=== PATIENT | female | born 1985 | race African-American/Black ===

== ENCOUNTER 2016-07-14 08:02 | Emergency (ER) | payer BC, OTHER ==
[2016-07-14 08:16] VITALS: BP 109/67
--- NOTE | 2016-07-14 08:31 | UC ---
Throat Pain/Nasal Brian HPI - HPI Summary HPI Summary: sinus pain/pressure with headache. On week 2 of URI, suddenly worsened a few days ago. Productive cough. No fever. No ST or earache. - History of Current Complaint Chief Complaint: UCRespiratory Stated Complaint: RESPIRATORY COMPLAINT Time Seen by Provider: 07/14/16 08:20 Hx Obtained From: Patient Hx Last Menstrual Period: 06/24/16 Onset/Duration: Gradual Onset, Lasting Days - 14 Severity: Moderate Cough: Productive Associated Signs & Symptoms: Positive: Hoarseness, Sinus Discomfort, Nasal Discharge. Negative: Dysphagia, Fever, Vomiting, Rash - Epiglottits Risk Factors Epiglottis Risk Factors: Negative - Allergies/Home Medications Allergies/Adverse Reactions: Allergies Allergy/AdvReac Type Severity Reaction Status Date / Time Oxycodone [From Percocet] Allergy Mild Rash Verified 07/14/16 08:09 Penicillins Allergy Mild Hives Verified 07/14/16 08:09 PMH/Surg Hx/FS Hx/Imm Hx Previously Healthy: Yes Endocrine History Of: Denies: Diabetes, Thyroid Disease Cardiovascular History Of: Denies: Cardiac Disorders, Hypertension Respiratory History Of: Denies: COPD, Asthma GI/ History Of: Denies: Ulcer - Surgical History Surgical History: Yes Surgery Procedure, Year, and Place: [place], 2012, [facility] D&C - Family History Known Family History: Negative: Hypertension, Diabetes - Social History Occupation: Employed Full-time Lives: Alone Alcohol Use: Rare Substance Use Type: None Smoking Status (MU): Heavy Every Day Tobacco Smoker Type: Cigarettes Amount Used/How Often: 1/2 PPD Length of Time of Smoking/Using Tobacco: 10 Years Have You Smoked in the Last Year: Yes Household Exposure Type: Cigarettes - Immunization History Most Recent Influenza Vaccination: Not this season Review of Systems Constitutional: Negative Skin: Negative Eyes: Negative ENT: Nasal Discharge Respiratory: Cough Cardiovascular: Negative Gastrointestinal: Negative Genitourinary: Negative Motor: Negative Neurovascular: Negative Musculoskeletal: Negative Neurological: Negative Psychological: Negative All Other Systems Reviewed And Are Negative: Yes Physical Exam Triage Information Reviewed: Yes Appearance: Well-Appearing, No Pain Distress, Well-Nourished Vital Signs: Initial Vital Signs Temp 99.3 F 07/14/16 08:10 Pulse 67 07/14/16 08:10 Resp 16 01/18/17 08:10 BP 109/67 07/14/16 08:10 Pulse Ox 100 07/14/16 08:10 Vital Signs Reviewed: Yes Eye Exam: Normal ENT: Positive: Pharynx normal, Nasal congestion, Nasal drainage, TMs normal, Muffled/hoarse voice. Negative: Tonsillar swelling, Tonsillar exudate, Trismus Neck exam: Normal Respiratory Exam: Normal Respiratory: Positive: Lungs clear, Normal breath sounds, No respiratory distress, No accessory muscle use Musculoskeletal Exam: Normal Neurological Exam: Normal Psychological Exam: Normal Skin Exam: Normal Throat Pain/Nasal Course/Dx - Differential Dx/Diagnosis Differential Diagnosis/HQI/PQRI: Pharyngitis, Sinusitis, URI Provider Diagnoses: sinusitis Discharge - Discharge Plan Condition: Stable Disposition: HOME Prescriptions: DOXYcycline CAP(*) [DOXYcycline 100MG CAP(*)] 100 mg PO BID #20 cap Tramadol HCl [Ultram] 1 - 2 tab PO Q6HR PRN #20 tab MDD 6 tab PRN Reason: Headache Patient Education Materials: Sinusitis (ED) Referrals: Mari Lynn MD [Primary Care Provider] -
== END 2016-07-14 08:40 | disposition home or self-care (01) ==
LOC: UCCORT 08:02
DX: J32.9 Chronic sinusitis, unspecified (principal); Z88.5 Allergy status to narcotic agent; Z88.0 Allergy status to penicillin; F17.210 Nicotine dependence, cigarettes, uncomplicated
CPT/HCPCS: 99212; G0463

== ENCOUNTER 2016-07-29 13:22 | Emergency (ER) | payer BC ==
[2016-07-29 13:38] VITALS: BP 125/78
--- NOTE | 2016-07-29 16:10 | UC ---
Throat Pain/Nasal Brian HPI - HPI Summary HPI Summary: over 2 weeks of sinus pain and congestion, b/l ear pain and cough for 1 week ultram is causing her dizziness and got no relief of sinus infection with doxy, in addition she began with loose stool yesterday - History of Current Complaint Chief Complaint: UCGeneralIllness Stated Complaint: COUGH/VOMITING Time Seen by Provider: 07/29/16 15:50 Hx Obtained From: Patient Hx Last Menstrual Period: 07/03/16 ?: No Onset/Duration: Gradual Onset, Lasting Weeks, Still Present Severity: Moderate Pain Intensity: 5 Pain Scale Used: 0-10 Numeric Cough: None Associated Signs & Symptoms: Positive: Sinus Discomfort, Nasal Discharge - Allergies/Home Medications Allergies/Adverse Reactions: Allergies Allergy/AdvReac Type Severity Reaction Status Date / Time Oxycodone [From Percocet] Allergy Mild Rash Verified 07/29/16 13:38 Penicillins Allergy Mild Hives Verified 07/29/16 13:38 PMH/Surg Hx/FS Hx/Imm Hx Previously Healthy: Yes Endocrine History Of: Denies: Diabetes, Thyroid Disease Cardiovascular History Of: Denies: Cardiac Disorders, Hypertension Respiratory History Of: Denies: COPD, Asthma GI/ History Of: Denies: Ulcer - Surgical History Surgical History: Yes Surgery Procedure, Year, and Place: [facility], [facility], [facility] D&C - Family History Known Family History: Negative: Hypertension, Diabetes Family History: denies family cardiovascular or diabetic issues - Social History Occupation: Employed Full-time Lives: With Family Alcohol Use: Rare Substance Use Type: None Smoking Status (MU): Heavy Every Day Tobacco Smoker Type: Cigarettes Amount Used/How Often: 1/2 PPD Length of Time of Smoking/Using Tobacco: 10 Years Have You Smoked in the Last Year: Yes Household Exposure Type: Cigarettes Cessation Counseling: Patient Advised to Stop - Immunization History Most Recent Influenza Vaccination: Not this season Review of Systems Constitutional: Negative Skin: Negative Eyes: Negative ENT: Sore Throat, Ear Ache, Nasal Discharge Respiratory: Cough Cardiovascular: Negative Gastrointestinal: Abdominal Pain - nausea, Diarrhea Genitourinary: Negative Motor: Negative Neurovascular: Negative Musculoskeletal: Negative Neurological: Negative Psychological: Negative All Other Systems Reviewed And Are Negative: Yes Physical Exam Triage Information Reviewed: Yes Appearance: Well-Appearing, No Pain Distress, Well-Nourished Vital Signs: Initial Vital Signs Temp 98.6 F 07/29/16 13:32 Pulse 72 07/29/16 13:32 Resp 16 07/29/16 13:32 BP 125/78 07/29/16 13:32 Pulse Ox 100 07/29/16 13:32 Vital Signs Reviewed: Yes Eye Exam: Normal Eyes: Positive: Conjunctiva Clear ENT Exam: Normal ENT: Positive: Normal ENT inspection, Hearing grossly normal, Pharynx normal, Nasal congestion, Nasal drainage. Negative: TMs normal, Tonsillar swelling, Tonsillar exudate, Trismus, Muffled/hoarse voice Neck exam: Normal Neck: Positive: Supple, Nontender, No Lymphadenopathy Respiratory Exam: Normal Respiratory: Positive: Chest non-tender, Lungs clear, Normal breath sounds, No respiratory distress, No accessory muscle use Cardiovascular Exam: Normal Cardiovascular: Positive: RRR, No Murmur, Pulses Normal, Brisk Capillary Refill Abdominal Exam: Normal Abdomen Description: Positive: Nontender, No Organomegaly, Soft Bowel Sounds: Positive: Present Musculoskeletal Exam: Normal Musculoskeletal: Positive: Strength Intact, ROM Intact, No Edema Neurological Exam: Normal Neurological: Positive: Alert Psychological Exam: Normal Skin Exam: Normal Throat Pain/Nasal Course/Dx - Course Assessment/Plan: zithromax, zofran, increase fluids, follow with pcp recheck prn - Differential Dx/Diagnosis Differential Diagnosis/HQI/PQRI: Otitis Media, Peritonsillar Abscess, Pharyngitis, Sinusitis, URI Provider Diagnoses: Sinuisitis, Gastroenterititis Discharge - Discharge Plan Condition: Stable Disposition: HOME Prescriptions: Azithromycin TAB* [Zithromax TAB (Z-LILIYA) 250 mg #6 tabs] 2 tab PO .TODAY, THEN 1 DAILY #1 liliya Ondansetron [Zofran Odt] 4 mg PO QID #10 tab Patient Education Materials: Decongestant/Expectorant (By mouth), Sinusitis (ED ), Acute Nausea and Vomiting (ED), How to Use Nasal [place] (ED) Forms: *Work Release Referrals: Mari Lynn MD [Primary Care Provider] - If Needed
== END 2016-07-29 16:23 | disposition home or self-care (01) ==
LOC: UCCORT 13:22
DX: J32.9 Chronic sinusitis, unspecified (principal); K52.9 Noninfective gastroenteritis and colitis, unspecified; Z88.5 Allergy status to narcotic agent; Z88.0 Allergy status to penicillin; F17.210 Nicotine dependence, cigarettes, uncomplicated; Z71.6 Tobacco abuse counseling
CPT/HCPCS: 99212; G0463

== ENCOUNTER 2017-02-25 11:49 | Emergency (ER) | payer SELFPAY ==
[2017-02-25 11:58] VITALS: BP 125/86
--- NOTE | 2017-02-25 12:08 | UC ---
Back Pain HPI - HPI Summary HPI Summary: 31 YEAR OLD FEMALE PRESENTS WITH SEVERE LEFT SIDED UPPER BACK PAIN. - History of Current Complaint Chief Complaint: UCBackPain Stated Complaint: BACK INJURY (WC) Time Seen by Provider: 02/25/17 12:07 Hx Obtained From: Patient Hx Last Menstrual Period: 02/15/17 Onset/Duration: Sudden Onset Timing: Constant Severity Initially: Moderate Severity Currently: Severe Pain Scale Used: 0-10 Numeric - 8 Back Pain: Is Discrete @ - LEFT UPPER SHOULDER Aggravating: Lifting Associated Signs And Symptoms: Positive: Negative - Allergies/Home Medications Allergies/Adverse Reactions: Allergies Allergy/AdvReac Type Severity Reaction Status Date / Time Oxycodone [From Percocet] Allergy Mild Rash Verified 02/25/17 11:58 Penicillins Allergy Mild Hives Verified 02/25/17 11:58 Home Medications: Home Medications FLUoxetine CAP* [PROzac CAP*] 10 mg PO DAILY 02/25/17 [History Confirmed ] Ibuprofen TAB* [Motrin TAB* 600 MG] 600 mg PO Q6H PRN 02/25/17 [History Confirmed 02/25/17] PMH/Surg Hx/FS Hx/Imm Hx Previously Healthy: Yes - Surgical History Surgical History: Yes Surgery Procedure, Year, and Place: [place], 2012, [facility] D&C - Family History Known Family History: Negative: Hypertension, Diabetes Family History: denies family cardiovascular or diabetic issues - Social History Alcohol Use: Rare Substance Use Type: None Smoking Status (MU): Heavy Every Day Tobacco Smoker Type: Cigarettes Amount Used/How Often: 1/2 PPD Length of Time of Smoking/Using Tobacco: 10 Years Have You Smoked in the Last Year: Yes Household Exposure Type: Cigarettes - Immunization History Most Recent Influenza Vaccination: Not this season Review of Systems Constitutional: Negative Skin: Negative Eyes: Negative ENT: Negative Respiratory: Negative Cardiovascular: Negative Gastrointestinal: Negative Genitourinary: Negative Motor: Negative Neurovascular: Negative Musculoskeletal: Other: - LEFT UPPER BACK PAIN Neurological: Negative Psychological: Negative All Other Systems Reviewed And Are Negative: Yes Physical Exam Triage Information Reviewed: Yes Appearance: Pain Distress Vital Signs: Initial Vital Signs Temp 36.9 C 02/25/17 11:54 Pulse 64 02/25/17 11:54 Resp 18 02/25/17 11:54 BP 125/86 02/25/17 11:54 Pulse Ox 100 02/25/17 11:54 Vital Signs Reviewed: Yes Eye Exam: Normal ENT Exam: Normal Dental Exam: Normal Neck exam: Normal Neck: Positive: 1 Respiratory: Positive: Other: - LEFT UPPER BACK PAIN Cardiovascular Exam: Normal Abdominal Exam: Normal Musculoskeletal Exam: Normal Neurological Exam: Normal Psychological Exam: Normal Skin Exam: Normal Back Pain Course/Dx - Differential Dx/Diagnosis Provider Diagnoses: LEFT UPPER BACK PAIN Discharge - Discharge Plan Condition: Stable Disposition: HOME Prescriptions: Methocarbamol TAB* [Robaxin 500 MG TAB*] 500 mg PO TID PRN #30 tab PRN Reason: Spasms - Back Methylprednisolone [Medrol Dosepak 4 MG*] 4 mg PO .SEE LILIYA INSTRUCTION #21 tab Patient Education Materials: Acute Low Back Pain (ED), Shoulder Pain (ED) Forms: *Work Release Referrals: Mari Lynn MD [Medical Doctor] -
--- NOTE | 2017-02-25 12:37 | RAD ---
INDICATION: Shortness of breath. COMPARISON: There are no prior studies available for comparison. TECHNIQUE: Dual-energy PA and lateral views of the chest were obtained. FINDINGS: The heart is within normal limits in size. Mediastinal and hilar contours appear within normal limits. The lungs are clear. No pleural effusion is present. IMPRESSION: NO EVIDENCE FOR ACUTE FINDING.
[2017-02-25] MEDS ORDERED: methylPREDNISolone 125 MG* 2 ML VIAL IM ONE (12:38)
[2017-02-25] MEDS ORDERED: Cyclobenzaprine TAB* 10 MG PO ONE (13:01)
== END 2017-02-25 13:17 | disposition home or self-care (01) ==
LOC: UCCORT 11:49
DX: M54.9 Dorsalgia, unspecified (principal); Z88.5 Allergy status to narcotic agent; Z88.0 Allergy status to penicillin; F17.210 Nicotine dependence, cigarettes, uncomplicated
CPT/HCPCS: 71020; 96372; 99211; A9270-GY; G0463; J2930

== ENCOUNTER 2017-07-20 13:11 | Emergency (ER) | payer BC, OTHER ==
[2017-07-20 13:55] VITALS: BP 130/80
--- NOTE | 2017-07-20 15:04 | ED ---
Throat Pain/Nasal Congestion - HPI Summary HPI Summary: 31 yr old with the complaint of bilateral maxillary sinus pressure and congestion with bilateral ear pressure. Onset of runny nose, sore throat and cough about a month ago. She cannot get over the feeling of the pressure and post nasal drip in her sinuses, and now she has bilateral ear pressure. she and her have both had similar symptoms. - History of Current Complaint Chief Complaint: UCEar Time Seen by Provider: 07/20/17 14:39 - Allergies/Home Medications Allergies/Adverse Reactions: Allergies Allergy/AdvReac Type Severity Reaction Status Date / Time Oxycodone [From Percocet] Allergy Mild Rash Verified 07/20/17 13:56 Penicillins Allergy Mild Hives Verified 07/20/17 13:56 PMH/Surg Hx/FS Hx/Imm Hx Endocrine/Hematology History: Denies: Hx Diabetes, Hx Thyroid Disease Cardiovascular History: Denies: Hx Hypertension Respiratory History: Denies: Hx Asthma, Hx Chronic Obstructive Pulmonary Disease (COPD) GI History: Denies: Hx Ulcer - Surgical History Surgery Procedure, Year, and Place: [place], [facility], [facility] D&C Infectious Disease History: No Infectious Disease History: Denies: Hx Hepatitis, Hx Human Immunodeficiency Virus (HIV), Traveled Outside the [place] in Last 30 Days - Family History Known Family History: Negative: Hypertension, Diabetes Family History: denies family cardiovascular or diabetic issues - Social History Alcohol Use: Rare Substance Use Type: Reports: None Smoking Status (MU): Heavy Every Day Tobacco Smoker Type: Cigarettes Amount Used/How Often: 1/2 PPD Length of Time of Smoking/Using Tobacco: 10 Years Have You Smoked in the Last Year: Yes Review of Systems Constitutional: Negative Positive: Ear Ache, Nasal Discharge Positive: Cough All Other Systems Reviewed And Are Negative: Yes Physical Exam Triage Information Reviewed: Yes Vital Signs On Initial Exam: Initial Vitals Temp Pulse Resp BP Pulse Ox 98.3 F 66 18 130/80 100 07/20/17 13:52 07/20/17 13:52 07/20/17 13:52 07/20/17 13:52 07/20/17 13:52 Vital Signs Reviewed: Yes Appearance: Positive: Well-Appearing, No Pain Distress Skin: Positive: Skin Color Reflects Adequate Perfusion Head/Face: Positive: Normal Head/Face Inspection Eyes: Positive: EOMI ENT: Positive: Pharynx normal, TMs normal, Sinus tenderness - bilateral Neck: Positive: Nontender Respiratory/Lung Sounds: Positive: Clear to Auscultation, Breath Sounds Present Cardiovascular: Positive: RRR. Negative: Murmur Abdomen Description: Positive: Nontender Musculoskeletal: Positive: Strength/ROM Intact Neurological: Positive: Sensory/Motor Intact, Alert, Oriented to Person Place, Time, CN Intact II-III Psychiatric: Positive: Normal - Suly Coma Scale Best Eye Response: 4 - Spontaneous Best Motor Response: 6 - Obeys Commands Best Verbal Response: 5 - Oriented Coma Scale Total: 15 Diagnostics - Vital Signs Vital Signs Temp Pulse Resp BP Pulse Ox 07/20/17 13:52 98.3 F 66 18 130/80 100 - Laboratory Lab Statement: Any lab studies that have been ordered have been reviewed, and results considered in the medical decision making process. EENT Course/Dx - Course Course Of Treatment: 31 yr old with sinusitis. Plan Dc to home on Biaxin - Diagnoses Provider Diagnoses: Sinusitis Discharge - Discharge Plan Condition: Good Disposition: HOME Prescriptions: Clarithromycin TAB* [Biaxin 500 MG TAB*] 500 mg PO BID #20 tab Fluconazole [Diflucan 150 MG (NF)] 150 mg PO ONCE #1 tab Patient Education Materials: Sinusitis (ED) Referrals: Mari Lynn MD [Primary Care Provider] - 7 Days
== END 2017-07-20 15:00 | disposition home or self-care (01) ==
LOC: UCCORT 13:11
DX: J32.9 Chronic sinusitis, unspecified (principal); H93.8X3 Other specified disorders of ear, bilateral; Z88.5 Allergy status to narcotic agent; Z88.0 Allergy status to penicillin; F17.210 Nicotine dependence, cigarettes, uncomplicated
CPT/HCPCS: 99211; G0463

== ENCOUNTER 2018-12-18 09:45 | Emergency (ER) | payer BC ==
[2018-12-18 10:08] VITALS: BP 148/86
--- NOTE | 2018-12-18 10:33 | UC ---
Throat Pain/Nasal Brian HPI - HPI Summary HPI Summary: 33-year-old female comes in with a chief complaint of upper respiratory tract infection symptoms for one month. She's had rhinorrhea and chest congestion. She's tried multiple [id number] medications without any sustained relief. No wheezing. She feels like her sinuses are congested and her chest is congested. No fevers recently. - History of Current Complaint Chief Complaint: UCGeneralIllness Stated Complaint: EARS CONGESTION Time Seen by Provider: 12/18/18 10:14 Hx Last Menstrual Period: 11/2018 Pain Intensity: 10 - Allergies/Home Medications Allergies/Adverse Reactions: Allergies Allergy/AdvReac Type Severity Reaction Status Date / Time oxycodone Allergy Mild Rash Verified 12/18/18 10:03 Penicillins Allergy Mild Hives Verified 12/18/18 10:03 PMH/Surg Hx/FS Hx/Imm Hx Previously Healthy: Yes - Surgical History Surgical History: Yes Surgery Procedure, Year, and Place: [facility], [facility], [facility]. D&C - Family History Known Family History: Negative: Hypertension, Diabetes Family History: denies family cardiovascular or diabetic issues - Social History Alcohol Use: Occasionally Substance Use Type: None Smoking Status (MU): Heavy Every Day Tobacco Smoker Type: Cigarettes Amount Used/How Often: 1/2 PPD Length of Time of Smoking/Using Tobacco: 10 Years Have You Smoked in the Last Year: Yes Household Exposure Type: Cigarettes - Immunization History Most Recent Influenza Vaccination: Not this season Review of Systems All Other Systems Reviewed And Are Negative: Yes Constitutional: Positive: Negative Skin: Positive: Negative Eyes: Positive: Negative ENT: Positive: Sore Throat, Nasal Discharge, Sinus Congestion, Sinus Pain/ Tenderness Respiratory: Positive: Other - SEE HPI Cardiovascular: Positive: Negative Gastrointestinal: Positive: Negative Motor: Positive: Negative Neurovascular: Positive: Negative Musculoskeletal: Positive: Negative Neurological: Positive: Negative Psychological: Positive: Negative Is Patient Immunocompromised?: No Physical Exam Triage Information Reviewed: Yes Appearance: No Pain Distress, Well-Nourished, Ill-Appearing - MILD Vital Signs: Initial Vital Signs Temp 97.6 F 12/18/18 10:04 Pulse 61 12/18/18 10:04 Resp 17 12/18/18 10:04 BP 148/86 12/18/18 10:04 Pulse Ox 100 12/18/18 10:04 Vital Signs Reviewed: Yes Eye Exam: Normal Eyes: Positive: Conjunctiva Clear ENT: Positive: Pharyngeal erythema, Nasal congestion, Nasal drainage, TMs normal Neck: Positive: Supple Respiratory: Positive: Lungs clear, Normal breath sounds, No respiratory distress Cardiovascular: Positive: RRR Musculoskeletal Exam: Normal Musculoskeletal: Positive: Strength Intact, ROM Intact Neurological Exam: Normal Neurological: Positive: Alert, Muscle Tone Normal Psychological Exam: Normal Psychological: Positive: Normal Response To Family, Age Appropriate Behavior Skin Exam: Normal Throat Pain/Nasal Course/Dx - Differential Dx/Diagnosis Provider Diagnosis: Sinusitis, Bronchitis Discharge - Sign-Out/Discharge Documenting (check all that apply): Patient Departure All imaging exams completed and their final reports reviewed: No Studies - Discharge Plan Condition: Stable Disposition: HOME Prescriptions: DOXYcycline CAP(*) [DOXYcycline 100MG CAP(*)] 100 mg PO BID #20 cap Fluticasone NASAL SPRAY 50MCG* [Flonase NASAL SPRAY 50MCG*] 2 spray BOTH NARES DAILY #1 btl Patient Education Materials: Sinusitis (ED), Acute Bronchitis (ED) Forms: *Work Release Referrals: Sourav Mix PA [Primary Care Provider] - Additional Instructions: FOLLOW UP WITH YOUR DOCTOR IF NOT COMPLETELY IMPROVED. GET RECHECKED SOONER IF YOUR CONDITION WORSENS OR ANY QUESTIONS OR CONCERNS. - Billing Disposition and Condition Condition: STABLE Disposition: Home
== END 2018-12-18 10:44 | disposition home or self-care (01) ==
LOC: UCCORT 09:45
DX: J32.9 Chronic sinusitis, unspecified (principal); J40 Bronchitis, not specified as acute or chronic; F17.210 Nicotine dependence, cigarettes, uncomplicated; Z88.0 Allergy status to penicillin; Z88.5 Allergy status to narcotic agent
CPT/HCPCS: 99212; G0463

== ENCOUNTER 2019-03-20 19:06 | Emergency (ER) | payer BC ==
[2019-03-20 20:35] VITALS: BP 128/75
[2019-03-20] MEDS ORDERED: Albuterol HFA INHALER* 8 gm MDI INH ONE (21:24)
[2019-03-20] MEDS ORDERED: Azithromycin TAB* 250 MG PO ONE (21:24)
--- NOTE | 2019-03-20 21:26 | UC ---
Throat Pain/Nasal Brian HPI - HPI Summary HPI Summary: 33-year-old woman comes in with a chief complaint of cough chest congestion for 5 days.Been using [id number] medicines and she felt like she was getting better until yesterday and everything got worse with more chest congestion and wheezing. Sputum and rhinorrhea with yellow. - History of Current Complaint Chief Complaint: UCRespiratory Stated Complaint: COUGH, CONGESTION Time Seen by Provider: 03/20/19 21:14 Hx Last Menstrual Period: 03/03/19 Pain Intensity: 9 - Allergies/Home Medications Allergies/Adverse Reactions: Allergies Allergy/AdvReac Type Severity Reaction Status Date / Time oxycodone Allergy Mild Rash Verified 03/20/19 20:31 Penicillins Allergy Mild Hives Verified 03/20/19 20:31 Home Medications: Home Medications FLUoxetine CAP* [Prozac CAP*] 40 mg BEDTIME 03/20/19 [History Confirmed 03/20/19 ] PMH/Surg Hx/FS Hx/Imm Hx Previously Healthy: Yes Respiratory History: Asthma - Surgical History Surgical History: Yes Surgery Procedure, Year, and Place: [place], [facility], [facility]. D&C - Family History Known Family History: Negative: Hypertension, Diabetes Family History: denies family cardiovascular or diabetic issues - Social History Alcohol Use: Occasionally Substance Use Type: None Smoking Status (MU): Heavy Every Day Tobacco Smoker Type: Cigarettes Amount Used/How Often: 1/2 PPD Length of Time of Smoking/Using Tobacco: 10 Years Have You Smoked in the Last Year: Yes Household Exposure Type: Cigarettes - Immunization History Most Recent Influenza Vaccination: Not this season Review of Systems All Other Systems Reviewed And Are Negative: Yes Constitutional: Positive: Other - SEE HPI Skin: Positive: Negative Eyes: Positive: Negative ENT: Positive: Nasal Discharge, Sinus Congestion Respiratory: Positive: Cough, Other - SEE HPI Cardiovascular: Positive: Negative Gastrointestinal: Positive: Negative Motor: Positive: Negative Neurovascular: Positive: Negative Musculoskeletal: Positive: Negative Neurological: Positive: Negative Psychological: Positive: Negative Is Patient Immunocompromised?: No Physical Exam Triage Information Reviewed: Yes Appearance: No Pain Distress, Well-Nourished, Ill-Appearing - MILD Vital Signs: Initial Vital Signs Temp 97.9 F 03/20/19 20:32 Pulse 66 03/20/19 20:32 Resp 16 03/20/19 20:32 BP 128/75 03/20/19 20:32 Pulse Ox 100 03/20/19 20:32 Vital Signs Reviewed: Yes Eye Exam: Normal Eyes: Positive: Conjunctiva Clear ENT: Positive: Pharyngeal erythema, Nasal congestion, Nasal drainage, TMs normal Neck: Positive: Supple Respiratory: Positive: No respiratory distress, Rhonchi Cardiovascular: Positive: RRR Musculoskeletal: Positive: Strength Intact, ROM Intact Neurological: Positive: Alert, Muscle Tone Normal Psychological: Positive: Age Appropriate Behavior Skin Exam: Normal Throat Pain/Nasal Course/Dx - Course Course Of Treatment: DISCUSSED VIRAL VERSES BACTERIAL INFECTIONS AND THE ROLE OF ANTIBIOTIC. PATIENT PREFERS TO BE ON ANTIBIOTICS AT THIS TIME. - Differential Dx/Diagnosis Provider Diagnosis: Bronchitis with bronchospasm Discharge ED - Sign-Out/Discharge Documenting (check all that apply): Patient Departure All imaging exams completed and their final reports reviewed: No Studies - Discharge Plan Condition: Stable Disposition: HOME Prescriptions: Azithromycin 250 mg PO DAILY #4 tablet Patient Education Materials: Acute Bronchitis (ED), Bronchospasm (ED) Forms: *Work Release Referrals: Sourav Mix PA [Primary Care Provider] - Additional Instructions: FOLLOW UP WITH YOUR DOCTOR IF NOT COMPLETELY IMPROVED. GET RECHECKED SOONER IF WORSE OR ANY QUESTIONS OR CONCERNS. - Billing Disposition and Condition Condition: STABLE Disposition: Home
== END 2019-03-20 21:37 | disposition home or self-care (01) ==
LOC: UCCORT 19:06
DX: J20.9 Acute bronchitis, unspecified (principal); Z88.5 Allergy status to narcotic agent; Z88.0 Allergy status to penicillin; F17.210 Nicotine dependence, cigarettes, uncomplicated
CPT/HCPCS: 99212; A9270-GY; G0463

== ENCOUNTER 2019-07-31 15:28 | Emergency (ER) | payer BC, OTHER ==
[2019-07-31 16:26] VITALS: BP 110/69
--- NOTE | 2019-07-31 16:49 | UC ---
Throat Pain/Nasal Brian HPI - HPI Summary HPI Summary: 33-year-old female presents with complaints of 3 weeks of nasal congestion, sinus pressure, occasional sore throat, and occasional productive cough for clear sputum. Reports history of recurrent sinus infections. + smoker. Denies fever, chills, ear pain, dysphagia, chest pain, or shortness of breath. - History of Current Complaint Chief Complaint: UCRespiratory Stated Complaint: CHEST CONGESTION, SORE THROAT, EAR PAIN Time Seen by Provider: 07/31/19 16:26 Hx Obtained From: Patient Hx Last Menstrual Period: 07/17/19 Pain Intensity: 8 - Allergies/Home Medications Allergies/Adverse Reactions: Allergies Allergy/AdvReac Type Severity Reaction Status Date / Time oxycodone Allergy Mild Rash Verified 07/31/19 16:18 Penicillins Allergy Mild Hives Verified 07/31/19 16:18 Home Medications: Home Medications Acetaminophen TAB* [Tylenol TAB*] 650 mg PO Q4H PRN 07/31/19 [History Confirmed 07/31/19] PMH/Surg Hx/FS Hx/Imm Hx Psychological History: Depression - Surgical History Surgical History: Yes Surgery Procedure, Year, and Place: [place], 2012, [facility]. D&C - Family History Known Family History: Positive: Non-Contributory - Social History Occupation: Employed Full-time Lives: With Family Alcohol Use: Occasionally Substance Use Type: None Smoking Status (MU): Heavy Every Day Tobacco Smoker Type: Cigarettes Amount Used/How Often: 1/2 PPD Length of Time of Smoking/Using Tobacco: 10 Years Have You Smoked in the Last Year: Yes Household Exposure Type: Cigarettes - Immunization History Most Recent Influenza Vaccination: Not this season Review of Systems All Other Systems Reviewed And Are Negative: Yes Constitutional: Negative: Fever, Chills Eyes: Negative: Drainage, Eye Redness ENT: Positive: Sore Throat, Nasal Discharge, Sinus Congestion, Sinus Pain/ Tenderness. Negative: Ear Ache Respiratory: Positive: Cough. Negative: Shortness Of Breath Cardiovascular: Negative: Palpitations, Chest Pain Gastrointestinal: Negative: Abdominal Pain, Vomiting, Diarrhea, Nausea Genitourinary: Positive: Negative Musculoskeletal: Positive: Negative Neurological: Positive: Negative Is Patient Immunocompromised?: No Physical Exam - Summary Physical Exam Summary: GENERAL APPEARANCE: Alert and cooperative adult female who appears to be in no acute distress. EYES: Conjunctiva clear. No drainage. EARS: External auditory canals and tympanic membranes clear, hearing grossly intact. NOSE: Moderate nasal congestion. No nasal discharge. Maxillary sinus tenderness. THROAT: Pharyngeal cobblestoning. No tonsilar inflammation, swelling, exudate, or lesions. Uvula midline. NECK: Neck supple, non-tender without lymphadenopathy. CARDIAC: Normal S1 and S2. No S3, S4 or murmurs. Rhythm is regular. There is no peripheral edema, cyanosis or pallor. Extremities are warm and well perfused. Capillary refill is less than 2 seconds. Peripheral pulses intact. LUNGS: Clear to auscultation without rales, rhonchi, wheezing or diminished breath sounds. ABDOMEN: Positive bowel sounds. Soft, nondistended, nontender. No guarding or rebound. No masses or hepatosplenomegally. MUSKULOSKELETAL: ROM intact to all extremities. No joint erythema or tenderness. Normal muscular development. Normal gait. SKIN: Skin normal color, texture and turgor with no lesions or eruptions. Triage Information Reviewed: Yes Vital Signs: Initial Vital Signs Temp 98.2 F 07/31/19 16:19 Pulse 75 07/31/19 16:19 Resp 18 07/31/19 16:19 BP 110/69 07/31/19 16:19 Pulse Ox 100 07/31/19 16:19 Vital Signs Reviewed: Yes Throat Pain/Nasal Course/Dx - Course Course Of Treatment: 33-year-old female presents with complaints of 3 weeks of nasal congestion, sinus pressure, occasional sore throat, and occasional productive cough for clear sputum. Reports history of recurrent sinus infections. + smoker. Denies fever, chills, ear pain, dysphagia, chest pain, or shortness of breath. Afebrile. Vital signs stable. Patient had moderate nasal congestion, maxillary sinus tenderness, normal TMs, pharyngeal cobblestoning, no tonsillar swelling or exudate, no cervical lymphadenopathy, clear bilateral breath sounds , and otherwise unremarkable exam. Discussed with the patient that her symptoms and exam are consistent with an acute sinusitis and considering the duration of her symptoms will treat her with a course of antibiotics for the infection. Patient reports a penicillin allergy is with rash only therefore it should be safe to treat with a cephalosporin. She is to start cefpoxodime 100 mg twice a day 7 days as well as symptomatic treatment. Follow-up with her primary care provider in 5-7 days if symptoms are not improving. Anticipatory guidance and warning symptoms are reviewed with the patient. Verbalizes understanding and agrees with plan of care. - Differential Dx/Diagnosis Differential Diagnosis/HQI/PQRI: Influenza, Sinusitis, URI Provider Diagnosis: Acute sinusitis Discharge ED - Sign-Out/Discharge Documenting (check all that apply): Patient Departure All imaging exams completed and their final reports reviewed: No Studies - Discharge Plan Condition: Stable Disposition: HOME Prescriptions: Cefpodoxime 200 mg (NF) [Vantin 200 MG TAB (NF)] 200 mg PO Q12H 7 Days #14 tab Fluticasone NASAL SPRAY 50MCG* [Flonase NASAL SPRAY 50MCG*] 2 spray BOTH NARES DAILY #1 btl Patient Education Materials: Sinusitis (ED) Referrals: Souarv Mix PA [Primary Care Provider] - Additional Instructions: Your history and exam are consistent with a sinus infection. Considering the duration of your symptoms we will start you on an antibiotic to treat the infection. Start cefpodoxime 200 mg 1 tab twice a day for 7 days. Be sure to complete the entire course even if felling better. Drink plenty of fluids to avoid dehydration especially if you are running any fever. Use a saline rinse kit such as Neti Pot or NeilMed at least twice a day to help thin secretions and promote drainage of the sinuses. Use fluticasone (Flonase) nasal spray 2 sprays each nostril once daily. Use an over the counter decongestant such as Sudafed according to directions to help with congestion. Take over the counter acetaminophen (Tylenol) or ibuprofen (Advil, Motrin) according to directions as needed for pain or fever. Follow up with your primary care provider in 5-7 days if symptoms persist. Seek immediate medical attention in the emergency room if you have fever greater than 100.5 F despite taking acetaminophen or ibuprofen, have chest pain , difficulty breathing, are unable to swallow, or have any worsening of symptoms. - Billing Disposition and Condition Condition: STABLE Disposition: Home
== END 2019-07-31 17:11 | disposition home or self-care (01) ==
LOC: UCCORT 15:28
DX: J01.91 Acute recurrent sinusitis, unspecified (principal); R09.81 Nasal congestion; F17.210 Nicotine dependence, cigarettes, uncomplicated; Z88.0 Allergy status to penicillin; Z88.6 Allergy status to analgesic agent
CPT/HCPCS: 99212; G0463

== ENCOUNTER 2019-08-09 15:03 | Emergency (ER) | payer OTHER ==
[2019-08-09 15:41] VITALS: BP 131/77
[2019-08-09 15:51] LABS: Influenza B Molecular POSITIVE (Negative)
[2019-08-09] MEDS ORDERED: Ibuprofen TAB* 600 MG PO ONE (15:55)
--- NOTE | 2019-08-09 15:58 | UC ---
FLU HPI - HPI Summary HPI Summary: 33-year-old woman comes in with a chief complaint of influenza-like symptoms for 1 day. She has headache fever chills body aches sore throat. Patient is on an antibiotic for a sinus infection she still has about 3 or 4 more days of the anabolic left. She feels like she is developing a vaginal yeast infection. [id number] medicines are not helping much with the influenza-like symptoms. - History of Current Complaint Chief Complaint: UCGeneralIllness Stated Complaint: FLU LIKE SYMPTOMS Time Seen by Provider: 08/09/19 15:44 Hx Last Menstrual Period: 07/16/19 Pain Intensity: 10 - Allergy/Home Medications Allergies/Adverse Reactions: Allergies Allergy/AdvReac Type Severity Reaction Status Date / Time oxycodone Allergy Mild Rash Verified 08/09/19 15:36 Penicillins Allergy Mild Hives Verified 08/09/19 15:36 PMH/Surg Hx/FS Hx/Imm Hx Previously Healthy: Yes - Surgical History Surgical History: Yes Surgery Procedure, Year, and Place: [place] [id number], [facility]. D&C - Family History Known Family History: Positive: Non-Contributory - Social History Alcohol Use: Occasionally Substance Use Type: None Smoking Status (MU): Heavy Every Day Tobacco Smoker Type: Cigarettes Amount Used/How Often: 1/2 PPD Length of Time of Smoking/Using Tobacco: 10 Years Have You Smoked in the Last Year: Yes Household Exposure Type: Cigarettes - Immunization History Most Recent Influenza Vaccination: Not this season Review of Systems All Other Systems Reviewed And Are Negative: Yes Constitutional: Positive: Fever, Chills, Other - see hpi Skin: Positive: Negative Eyes: Positive: Negative ENT: Positive: Sore Throat, Nasal Discharge Respiratory: Positive: Cough Cardiovascular: Positive: Negative Gastrointestinal: Positive: Negative Genitourinary: Positive: Other - see hpi Motor: Positive: Negative Neurovascular: Positive: Negative Musculoskeletal: Positive: Myalgia Neurological/Mental Status: Positive: Headache Psychological: Positive: Negative Is Patient Immunocompromised?: No Physical Exam Triage Information Reviewed: Yes Appearance: No Pain Distress, Well-Nourished, Ill-Appearing - mild Vital Signs: Initial Vital Signs Temp 99.5 F 08/09/19 15:37 Pulse 97 08/09/19 15:37 Resp 16 08/09/19 15:37 BP 131/77 08/09/19 15:37 Pulse Ox 99 08/09/19 15:37 Vital Signs Reviewed: Yes Eye Exam: Normal Eyes: Positive: Conjunctiva Clear ENT: Positive: Pharyngeal erythema, Nasal congestion, Nasal drainage, TMs normal Neck: Positive: Supple Respiratory: Positive: Lungs clear, Normal breath sounds, No respiratory distress Cardiovascular: Positive: RRR Musculoskeletal: Positive: Strength Intact, ROM Intact Neurological: Positive: Alert, Muscle Tone Normal Psychological: Positive: Normal Response To Family, Age Appropriate Behavior Skin Exam: Normal Flu Course/Dx - Differential Dx/Diagnosis Provider Diagnosis: Influenza, Vaginal yeast infection Discharge ED - Sign-Out/Discharge Documenting (check all that apply): Patient Departure All imaging exams completed and their final reports reviewed: No Studies - Discharge Plan Condition: Stable Disposition: HOME Prescriptions: Fluconazole 150 MG TAB* [Diflucan 150 MG TAB*] 150 mg PO ONCE #2 tablet Oseltamivir CAP* [Tamiflu CAP*] 75 mg PO BID #10 cap Patient Education Materials: Influenza (ED), Yeast Infection (ED) Referrals: Sourav Mix PA [Primary Care Provider] - Additional Instructions: FOLLOW UP WITH YOUR DOCTOR IF NOT COMPLETELY IMPROVED. GET REEVALUATED SOONER IF NOT IMPROVED OR WORSE OR ANY QUESTIONS OR CONCERNS. - Billing Disposition and Condition Condition: STABLE Disposition: Home
== END 2019-08-09 16:11 | disposition home or self-care (01) ==
LOC: UCCORT 15:03
DX: J11.1 Influenza due to unidentified influenza virus with other respiratory manifestations (principal); B37.3 Candidiasis of vulva and vagina; F17.210 Nicotine dependence, cigarettes, uncomplicated; Z88.0 Allergy status to penicillin; Z88.5 Allergy status to narcotic agent
CPT/HCPCS: 99212; A9270-GY; G0463